=== PATIENT | female | born 1955 | race Caucasian/White ===

== ENCOUNTER → 2017-12-25 09:08 | Outpatient (CLI) | payer OTHER, SELFPAY ==
--- NOTE | 2017-12-25 | DI.US.S_ITS ---
PROCEDURE: US ABDOMEN COMPLETE INDICATIONS: RIGHT UPPER QUADRANT PAIN TECHNIQUE: Real-time scanning was performed of the abdominal and retroperitoneal organs, with image documentation. COMPARISON: None. FINDINGS: Liver: Liver is normal in size and hyperechoic in echotexture. Gallbladder: Gallbladder contains a layer of gravel-like stones. Wall thickness is normal. No pericholecystic free fluid and no reported positive Galloway's sign. Biliary ducts: Intrahepatic bile ducts are non-dilated. Extrahepatic bile duct caliber measures 5.3 mm. Normal is 6-7 mm or less in diameter, or 10 mm or less post-cholecystectomy. Pancreas: Visualized portions of the pancreas are sonographically normal. Spleen: Spleen is normal in size and homogeneous in echotexture. Kidneys: Kidneys are normal in size and echotexture. Right kidney measures 9.6 cm long; left kidney measures 11.1 cm long. No hydronephrosis or nephrolithiasis. No solid masses. Aorta: Visualized aorta is normal in caliber at less than 3 cm. Iliacs: Iliac vessels are obscured by bowel gas IVC: Intrahepatic inferior vena cava is patent. Miscellaneous: No free abdominal fluid. IMPRESSION: 1. Hyperechoic liver, likely hepatic steatosis. 2. Cholelithiasis without evidence of cholecystitis. Normal common bile duct. 3. Pancreas is heterogenic in echotexture but no mass is identified. 4. Iliac vessels are obscured. Dictated by: Miguel Tanner M.D. on 12/25/2017 at 10:16 Approved by: Miguel Tanner M.D. on 12/25/2017 at 10:19
== END ==
PROVIDERS: PCP Family Medicine; Visit Provider Surgery
DX: R10.11 Right upper quadrant pain (principal); K80.20 Calculus of gallbladder without cholecystitis without obstruction
CPT/HCPCS: 76700

== ENCOUNTER → 2018-01-29 14:31 | Outpatient (CLI) | payer OTHER, SELFPAY ==
[2018-01-29 15:32] LABS: Iron 97 ug/dL (37-170)
[2018-01-29 16:16] LABS: Vitamin B12 391 pg/mL (239-931)
[2018-01-31 13:39] LABS: Dehydroepiandrosterone Sulfate 75 mcg/dL (8-188)
[2018-01-31 14:49] LABS: Sex Hormone Binding Globulin 49 nmol/L (14-73)
[2018-01-31 19:41] LABS: Albumin 4.5 g/dL (3.6-5.1); Sex Hormone Binding Globulin 52 nmol/L (14-73); Testosterone, Bioavailable 4.3 ng/dL (0.5-8.5); Testosterone, Total 26 ng/dL (2-45); Testosterone,Free 2.1 pg/mL (0.2-5.0)
[2018-01-31 20:06] LABS: ANA Screen, IFA Negative (Negative)
== END ==
PROVIDERS: PCP Family Medicine; Visit Provider Physician Assistant
DX: L21.8 Other seborrheic dermatitis (principal); L65.9 Nonscarring hair loss, unspecified; Z80.0 Family history of malignant neoplasm of digestive organs; Z87.2 Personal history of diseases of the skin and subcutaneous tissue; Z71.89 Other specified counseling
CPT/HCPCS: 36415; 82040; 82607; 82627; 82728; 83540; 84270; 84403; 86038

== ENCOUNTER 2018-04-15 07:11 | Day surgery (SDC) | payer OTHER, SELFPAY ==
--- NOTE | 2018-04-15 | PATH_ITS ---
[facility] Accession Number: [id number] . 01 Material submitted: . PART A: ANTRUM BX PART B: CECAL POLYP PART C: RECTAL POLYP . 02 Diagnosis: A. Antrum, Biopsy: Gastric antral mucosa with no diagnostic abnormality. No evidence of Helicobacter organisms on H/E stain. Negative for intestinal metaplasia, dysplasia or malignancy. . B. Cecal Polyp: Colonic mucosa with no diagnostic abnormality, consistent with polypoid redundancy. Negative for serrated lesion, dysplasia or malignancy. Additional step sections examined. . C. Rectal Polyp: Hyperplastic polyp. MRV/04/17/2018 . 02 Electronically signed: . Yayo Carreon MD, PhD, Pathologist NPI- [id number] . 01 Gross description: . Part A: ANTRUM BX: Received in formalin are multiple fragment(s) of montanez, soft tissue measuring 0.5 x 0.5 x 0.2 cm in aggregate submitted entirely in 1 cassette(s) Part B: CECAL POLYP: Received in formalin are multiple fragment(s) of montanez, soft tissue measuring 0.7 x 0.2 x 0.2 cm in aggregate submitted entirely in 1 cassette(s) Part C: RECTAL POLYP: Received in formalin are 2 fragment(s) of montanez, soft tissue measuring 0.5 x 0.2 x 0.1 cm to 0.4 x 0.2 x 0.1 cm submitted entirely in 1 cassette(s) /CKI /CKI . 02 Pathologist provided ICD-10: K63.5, K62.1, R10.13 . 02 CPT . 294310, 012233, 319245 Performed at: [address], [place], [place] [id number] MD Berto Farfan MD Phone: [phone] Performed at: 02 [facility] [address] [place] [id number] MD Daniel Henriquez MD Phone: [phone]
[2018-04-15 07:43] VITALS: BP 143/80; PULSE 57; RESP 16; TEMP 36.4; O2SAT 97; BMI 28.3
--- NOTE | 2018-04-15 07:52 | PM.HP.1 ---
History of Present Illness Date Patient Seen: 04/15/18 Time Patient Seen: 07:52 Chief complaint: [id number] EGD/COLONOSCOPY Narrative: 63-year-old female seen February 27, 2018 for complaints of persistent reflux disease, heartburn, retrosternal chest pain, and epigastric pain poorly controlled with her medications at that time including proton pump inhibitor therapy. She has also been using significant NSAIDs [id number] for arthritic pain. Her symptoms have not responded well to medical management and dietary changes. There is the possibility of esophagitis or ulcer disease. She also requires colorectal screening. Patient History Family & Social History Tobacco & Substance use: Smoking Status Never smoker Meds Home Medications Medication Instructions Recorded Confirmed Type hydrocortisone 0.2 TOPICAL PRN PRN #0 04/18/17 02/27/18 History naproxen sodium [Aleve] 1 - 2 tab PO BID #0 04/18/17 04/15/18 History valacyclovir [Valtrex] 1,000 mg PO PRN PRN #0 04/18/17 02/27/18 History atenolol 50 mg PO QDAY #90 tab 06/07/17 04/15/18 Rx gabapentin [Neurontin] 600 mg PO BID #360 cap 06/07/17 04/15/18 Rx sertraline 50 mg PO QDAY #90 tab 06/07/17 04/15/18 Rx zolmitriptan [Zomig] 5 mg PO Q DAY PRN #6 tab 06/07/17 02/27/18 Rx lisinopril 20 mg PO QDAY #0 11/01/17 04/15/18 History pantoprazole 40 mg tablet,delayed 40 mg PO DAILY #30 tab 02/27/18 04/15/18 Rx release Allergies Allergy/AdvReac Type Severity Reaction Status Date / Time No Known Drug Allergies Allergy Verified 02/27/18 09:27 Review of Systems Review of Systems All systems reviewed & are unremarkable except as noted in HPI and below (No changes since the documented H& P of February 27, 2018) Exam Narrative Exam Narrative: Well-nourished well-developed female in no acute distress. Lying comfortably in the gurney. Alert oriented x3 Sclera nonicteric Neck is supple Chest clear to auscultation Abdomen soft, nondistended, nontender, no masses. Extremities show no clubbing, cyanosis, or edema Objective Labs Labs: No new radiographic or laboratory studies for review Assessment & Plan Plan: Assessment/Plan Narrative: 63-year-old female with gastroesophageal reflux disease refractory to proton pump inhibitor therapy and decrease in NSAID use. There is possibility of ulcer disease or esophagitis. Possible Mueller's esophagus as well. She also requires colorectal screening. I have therefore recommended EGD and colonoscopy. Technical details of the procedure were again reviewed. Risks, benefits, alternatives were explained. Risks including but not limited to sedation, aspiration, bleeding, pain, missed lesion, incomplete examination, need for further radiographic studies, colonic perforation, esophageal perforation, gastric perforation, duodenal perforation, nondiagnostic study, need for further tests, need for major thoracic surgery, need for major abdominal surgery, and all attendant risks of major surgery were explained in detail. Questions were answered to her satisfaction, and she voiced understanding. Consent was placed on the chart. We will proceed as above.
--- NOTE | 2018-04-15 07:56 | PM.PREOP ---
Pre-operative Note Interval Note Pre-op Check: Yes History & Physical Reviewed by Physician, Yes Exam Performed and Yes History & Physical exam performed today by Physician Changes: No H&P completed within 30 days and has changed as indicated here:: Patient seen and examined today. History physical examination from February 27, 2018 updated and placed on the chart dated today. Proceed with EGD and colonoscopy as planned today. ASA Class (for procedural sedation): II
[2018-04-15] MEDS: SODIUM CHLORIDE 0.9% 1,000 ML 200 ML IV (08:02)
[2018-04-15] MEDS: LIDOCAINE 4% SOLN 50 ML 20 ML TOP (09:17)
[2018-04-15] MEDS: TETRACAINE/BENZOCAINE/BUTAMBEN (CETACAINE) BOTTLE 1 SPRAY TOP (09:17)
[2018-04-15] MEDS: MIDAZOLAM 5 MG/5 ML VIAL IV (09:46)
[2018-04-15] MEDS: fentaNYL 250 MCG/5 ML INJ IV (09:46)
[2018-04-15 09:55] VITALS: BP 116/71; PULSE 76; RESP 16; TEMP 36.8; O2SAT 95
--- NOTE | 2018-04-15 09:58 | PM.OP.ENDO ---
Operative Date/Time/Diagnoses Date of procedure: 04/15/18 Time of procedure: 09:59 Pre-op diagnosis: 1. Epigastric pain and persistent reflux disease refractory to medical management 2. Colorectal screening Post-op diagnosis: other (Gastritis, duodenitis, diverticulosis, cecal polyp, and rectal polyp) Procedure & Clinicians Study performed: 1. Sedation per surgeon 2. Esophagogastroduodenoscopy with cold forceps biopsies 3. Colonoscopy with cold forceps polypectomy Same procedure as scheduled: Yes Indications: 63-year-old female with longstanding history of gastroesophageal reflux disease recently progressing despite medical management. She also requires colorectal screening. EGD and colonoscopy were recommended. Surgeon: Rayshawn Hummel Procedure Notes SCOAP/Timeout: Yes Procedure in detail: After obtaining informed consent, the patient was brought to the GI suite and placed in the left lateral decubitus position on the examination table. After placement of appropriate monitors, the patient was given incremental doses of Versed and Fentanyl until an appropriate level of sedation was achieved. A time out was held per SCOAP protocol. A bite block was gently placed between the patient's teeth. The endoscope was lubricated and then passed into the patient's posterior oropharynx. The esophagus was cannulated under direct vision and the scope was passed to the second portion of the duodenum without difficulty. The scope was then withdrawn with careful examination of all areas of the upper GI tract and mucosa. In the stomach, the instrument was retroflexed and the GE junction examined. The scope was straightened and the procedure continued with examination of the remainder of the upper GI tract. Findings are noted above. Air was aspirated from the stomach and the endoscope gently removed from the esophagus. Table was turned 180? for colonoscopy A digital rectal examination was performed and did not reveal any masses or obstructing lesions. The colonoscope was gently passed into the patient's anus and the entire colon navigated to the level of the cecum with minimal difficulty. Once in the cecum, the scope was withdrawn being sure to go before and beyond all mucosal folds and prominences and get an excellent examination. The findings are noted above. At the level of the rectal vault, the scope was retroflexed and the internal anal canal was examined. The scope was straightened and air aspirated from the colon. The instrument was removed from the patient's body and the procedure was concluded. The patient was allowed to awaken from sedation without difficulty and taken to the post-anesthesia care unit in good condition. Scope withdrawal time: 9:31 min Sedation minutes: 31 Findings: diverticulosis, gastritis, polyp (1. Cecal polyp 2. Rectal polyp at 12 cm) and other findings (Duodenitis) Specimen(s): other (1. Antral biopsies 2. Cecal polyp 3. Rectal polyp at 12 cm) Complications: none Recommendations: Colonscopy in 5 years, Reflux diet, No ASA/NSAIDS and Continue medication(s) (Pantoprazole) Plan for aftercare: 1. Discharge to home 2. Follow up in surgery Clinic in 2 weeks to discuss results Follow up: weeks (Dr. Hummel in 2 weeks) Disposition: PACU
[2018-04-15 10:00] VITALS: BP 131/81; PULSE 70; RESP 14; O2SAT 94
[2018-04-15 10:05] VITALS: BP 140/73; PULSE 62; RESP 24; TEMP 36.8; O2SAT 97
[2018-04-15 10:13] VITALS: BP 148/73; PULSE 57; RESP 17; TEMP 36.8; O2SAT 98
[2018-04-15 10:35] VITALS: BP 109/61; PULSE 60; RESP 15; TEMP 36.7; O2SAT 98
== END 2018-04-15 10:46 | disposition home or self-care (01) ==
PROVIDERS: PCP Family Medicine; Visit Provider Surgery
PROC: 0DJ08ZZ Inspection of Upper Intestinal Tract, Via Natural or Artificial Opening Endoscopic (ICD-10-PCS; CPT 43235; principal; 2018-04-15 08:45)
PROC: 0DJD8ZZ Inspection of Lower Intestinal Tract, Via Natural or Artificial Opening Endoscopic (ICD-10-PCS; CPT 45378; 2018-04-15 08:45)
DX: Z12.11 Encounter for screening for malignant neoplasm of colon (principal); K21.9 Gastro-esophageal reflux disease without esophagitis; K29.70 Gastritis, unspecified, without bleeding; K29.80 Duodenitis without bleeding; K57.30 Diverticulosis of large intestine without perforation or abscess without bleeding; K62.1 Rectal polyp; D12.0 Benign neoplasm of cecum
CPT/HCPCS: 45380; 43239; 88305; 99152; 99153; J2250; J3010

== ENCOUNTER 2018-05-08 07:29 | Day surgery (SDC) | payer OTHER, SELFPAY ==
[2018-05-07 14:44] VITALS: BMI 28.6
[2018-05-08] VITALS (10 sets, daily range): BP systolic 118–155; BP diastolic 69–109; PULSE 66–95; RESP 10–20; TEMP 36.2–36.9; O2SAT 94–98; BMI 28.6
--- NOTE | 2018-05-08 | PATH_ITS ---
[facility] Accession Number: [id number] . 01 Material submitted: . GALLBLADDER AND CONTENTS . 02 Diagnosis: Gallbladder and Contents, Cholecystectomy: Chronic cholecystitis. One benign lymph node. Negative for neoplasm. MRV/05/10/2018 . 02 Electronically signed: . Yayo Carreon MD, PhD, Pathologist NPI- [id number] . 01 Gross description: . Received in formalin, labeled gallbladder and contents, is an opened gallbladder (length-8.3 cm, diameter-2.3 cm) with green smooth and shiny serosa and a patent cystic duct. One lymph node is identified (1.0 x 0.5 x 0.5 cm). The lumen contains dark green viscous bile. No calculi are present. The mucosa is green and semi-velvety. The wall is up to 0.1 cm thick. No nodules, masses or lesions are identified. Section code: (A1) cystic duct resection margin and two serial sections from the body; (A2) two longitudinal sections from the fundus; (A3) one bisected lymph node. ([id number]) /[facility] . 02 Pathologist provided ICD-10: K81.1 . 02 CPT . 934201 Specimen Comment: A duplicate report has been generated due to demographic updates. Performed at: 01 [facility] [address] [place] [address], [place], [place] [id number] MD Berto Farfan MD Phone: [phone] Performed at: 02 [facility] [address] [place], [place] [id number] MD Daniel Henriquez MD Phone: [phone]
--- NOTE | 2018-05-08 08:01 | PM.PREOP ---
Pre-operative Note Interval Note Pre-op Check: Yes History & Physical Reviewed by Physician and Yes Exam Performed Changes: No H&P completed within 30 days and has changed as indicated here:: Patient seen and examined preoperative area. History and physical examination as documented on April 30, 2018 has not changed. However, patient states she has been having some frequent loose stools over the last several days and mild chills but no fevers. No new abdominal pain. Stool is nonbloody. Denies any chest pain, shortness of breath, productive cough, or any other respiratory symptoms. Again, examination is completely unchanged from last week and current vital signs are completely normal. We will therefore proceed with cholecystectomy today as planned.
[2018-05-08] MEDS: LACTATED RINGERS 1,000 ML 42 ML IV ×2 (08:35→09:42)
[2018-05-08] MEDS: CEFAZOLIN 2 GM/100 ML FROZ.PIGGY IV (08:48)
--- NOTE | 2018-05-08 09:15 | SUR.OPER ---
Supine on padded OR bed, head on pillow, arms secured on padded arm boards at <90 degrees abduction, legs uncrossed, safety belt at thigh, tape over blanket over lower legs.
[2018-05-08] MEDS: BUPIVACAINE 0.25% (PF) VIAL 30 ML INJ (09:23)
[2018-05-08] MEDS: LIDOCAINE 1% W/EPI INJ 20 ML INJ (09:24)
--- NOTE | 2018-05-08 10:04 | PM.OP.1 ---
Operative Date/Time/Diagnoses Date of procedure: 05/08/18 Time of procedure: 10:04 Pre-op diagnosis: Symptomatic cholelithiasis Post-op diagnosis: same Procedure & Clinicians Procedure: Laparoscopic cholecystectomy Same procedure as scheduled: Yes Indications: 63-year-old female who presented with epigastric abdominal pain. After extensive evaluation her symptoms appear to be most likely secondary to cholelithiasis. Laparoscopic cholecystectomy was therefore recommended. Surgeon: Rayshawn Hummel Click Yes if Unassisted: Yes Anesthesia Type: General Operative Notes Findings: 1. Adhesions in the right lateral abdomen extending the right lower quadrant consistent with prior open appendectomy 2. Gallbladder with chronic adhesions to the omentum and duodenum 3. Mildly enlarged fatty infiltrated liver but without other obvious pathology 4. Otherwise normal stomach, duodenum, small bowel, and colon within the limits of laparoscopic visualization Closure Type: primary Specimen(s): other (Gallbladder) Implants & Drains: None Estimated Blood Loss (mL): 25 Blood products transfused: none Procedure in detail: After obtaining informed consent the patient was brought to the operating room placed supine on the table. After satisfactory induction of anesthesia the abdomen was prepped and draped in usual sterile fashion. SCOAP time out was performed per standard protocol. A one-to-one mixture of 1% lidocaine with 1 :100,000 epinephrine and 0.5% plain Marcaine was injected in the skin and subcutaneous tissue at the superior aspect of the umbilicus for postoperative analgesia. Vertical midline incision was created with 11 scalpel blade for distance of approximately 2 cm. Blunt dissection revealed the rectus fascia which was divided in the midline with 11 scalpel blade. Edges of the fascia were secured with Sanchez clamps and elevated into the operative field. Two individual interrupted 0 Vicryl suture were then placed superiorly and inferiorly through the fascia to secure it for later closure. Underlying peritoneum was secured between Nicole clamps and entered under direct visualization sharply. Blunt 12 mm Ward trocar was then inserted into the abdomen under direct visualization and carbon dioxide pneumoperitoneum was created. Abdomen was visually explored with a 30 degree 5 mm laparoscope. Findings are as above. Under direct laparoscopic visualization a 5 mm trocar was inserted to the right of the falciform ligament after the patient had been placed in reverse Trendelenburg position and local anesthesia had been applied. In a similar fashion to individual 5 mm trocars were placed in the right lateral abdomen after laparoscopic scissors were used to divide filmy adhesions on the abdominal wall from previous appendectomy. Fundus of the gallbladder was secured with a ratcheted grasper which was then retracted superiorly and medially over the liver edge. Adhesions were taken down with a combination of the [place] dissector and Jolly grasper. Infundibulum of the gallbladder was then identified, secured, and retracted inferiorly and laterally. Meticulous dissection in the triangle of Calot was performed with a [place] dissect her thereby exposing the cystic artery and cystic duct. Junction of the duct with the gallbladder was clearly visualized. Critical view of the liver bed through the avascular plane between the cystic duct and cystic artery were was visualized and otherwise obtained. Three clips were placed proximally on the cystic duct and 1 at the junction with the gallbladder then divided with scissors. In a similar fashion 2 clips were placed on the cystic artery proximally and 1 distally followed by division with laparoscopic scissors. Monopolar cautery was used to remove the gallbladder from the hepatic bed. Specimen was placed in an endo-pouch and retrieved through the umbilical incision. Specimen was sent for permanent section. Previously placed clips were meticulously examined and noted to be in good position without evidence of hemorrhage or bile leak. Liver bed and right upper quadrant were then irrigated with copious amounts of sterile saline solution which was suctioned from the abdomen and noted to return clear. No evidence of hemorrhage or bile leak was noted. Patient was replaced in supine position and the right upper quadrant was again irrigated. Irrigant was suctioned from the abdomen and noted to be clear. Instruments and trocars were then removed and hemostasis verified. Carbon dioxide was evacuated. Fascia at the umbilical site was closed with the previously placed 0 Vicryl suture. Skin at all 4 incisions was then closed in a subcuticular running fashion with 4 0 Monocryl suture. Dermal adhesive was applied to the skin. Anesthesia was reversed and patient extubated in the operating room. She was taken recovery in stable condition. Complications: none Condition: stable Disposition: PACU Plan for aftercare: 1. Discharge to home 2. Follow up in surgery Clinic in 2 weeks
[2018-05-08] MEDS: fentaNYL 100 MCG/2 ML INJ 50 MCG IV ×2 (10:06→10:14)
--- NOTE | 2018-05-08 10:20 | SUR.PHASEI ---
pt arrived awake, vss, pain treated with fentanyl.
[2018-05-08] MEDS: OXYCODONE/ACETAMINOPHEN 5/325 TABLET 1 TAB PO ×2 (10:27→10:46)
--- NOTE | 2018-05-08 10:33 | SUR.PHASEI ---
pt tolerated applesauce, medicated with percocet one tab. to opd stable
== END 2018-05-08 11:16 | disposition home or self-care (01) ==
PROVIDERS: PCP Family Medicine; Visit Provider Surgery
PROC: 0FT44ZZ Resection of Gallbladder, Percutaneous Endoscopic Approach (ICD-10-PCS; CPT 47562; principal; 2018-05-08 08:45)
DX: K81.1 Chronic cholecystitis (principal); R19.4 Change in bowel habit; K76.0 Fatty (change of) liver, not elsewhere classified; K66.0 Peritoneal adhesions (postprocedural) (postinfection); K21.9 Gastro-esophageal reflux disease without esophagitis; I10 Essential (primary) hypertension
CPT/HCPCS: 47562; 88304; J0360; J0690; J1100; J1885; J2405; J2704; J3010